=== PATIENT | female | born 1945 | race Caucasian/White ===

== ENCOUNTER → 2016-11-06 | Outpatient (CLI) | payer MEDICARE ==
[2016-11-06 08:35] LABS: ALT 36 U/L (9-52); AST 28 U/L (14-36); Cholesterol 160 mg/dL (<200); HDL Cholesterol 65 mg/dL (40-60); Triglycerides 96 mg/dL (<150)
== END | disposition home or self-care (01) ==
LOC: LABWHC1 07:23
PROVIDERS: ATTEND Internal Medicine Cardiovascular Disease
DX: E78.00 Pure hypercholesterolemia, unspecified (principal)
CPT/HCPCS: 36415; 80061; 84450; 84460

== ENCOUNTER → 2017-04-15 | Outpatient (CLI) | payer MEDICARE ==
--- NOTE | 2017-04-15 11:28 | XR ---
EXAMINATION TYPE: XR cervical spine comp DATE OF EXAM: 04/15/2017 COMPARISON: NONE HISTORY: 71-year-old female with cervicalgia, neck pain for 2 to 3 months TECHNIQUE: 5 views FINDINGS: Uncovertebral joint and facet arthropathy in the mid lumbar spine with corresponding mild disc/endpla te degenerative change, particularly at C5-C6. Anterior endplate spondylosis is present as well as armendariz ggestion of posterior disc osteophyte complex. There is normal alignment of the cervical spine. Odont oid view is normal. No significant bony spondylotic neural foraminal narrowing on either side. IMPRESSION: Mild to moderate spondylotic change mid to lower cervical spine particularly at C5-C6. No significant bony neural foraminal narrowing on either side.
== END | disposition home or self-care (01) ==
LOC: RADXRMAIN 10:46
PROVIDERS: ATTEND Family Medicine
DX: M47.812 Spondylosis without myelopathy or radiculopathy, cervical region (principal)
CPT/HCPCS: 72050

== ENCOUNTER 2017-06-09 09:46 | Day surgery (SDC) | payer MEDICARE ==
[2017-06-06 18:09] VITALS: BMI 33.9
[~2017-06-09 09:46] MED LIST: LACTATED RINGERS 1,000 ML IV SCH; LIDOCAINE 1% 20 ML VIAL (10MG/ML) FOR IV START INTRADERMA PRN
[2017-06-09 10:54] VITALS: TEMP 96.7
[2017-06-09] MEDS ORDERED: PROPOFOL 10 MG/ML 20 ML VIAL IV ONE (10:59)
[2017-06-09 11:33] VITALS: BP 106/59; PULSE 59; RESP 16
--- NOTE | 2017-06-09 11:41 | P.PCN ---
Date of Procedure: 06/09/17 Preoperative Diagnosis: Postoperative Diagnosis: Procedure(s) Performed: Procedure: Total colonoscopy. Preoperative diagnosis: Hemoccult-positive stools. Postoperative diagnosis: Sigmoid diverticulosis with no evidence of acute diverticulitis, strictures, polyps or cancer. Preparation: HalfLytely prep. Sedation: Was provided by anesthesia. Brief clinical history: The patient is a 71-year-old female who is referred for this evaluation for finding of positive occult blood in her stools. She has no abdominal complaints, bleeding or anemia. Her prior colonoscopy was more than 12 years ago. Procedure: With the patient on her left lateral decubitus position and after informed consent and adequate sedation, the perianal area was inspected and it did not show any fissures or fistulas. There were no masses felt on digital rectal examination. The Olympus CFQ 160L video colonoscope was then inserted in the rectum in the usual fashion and advanced to the cecum. There were multiple diverticular orifices seen scattered in the sigmoid but I saw no evidence of acute diverticulitis or strictures. The mucosa appeared healthy. No polyps or tumors were seen. Low-grade internal hemorrhoids were noted upon withdrawing the endoscope with no evidence of bleeding. The patient tolerated the procedure well. Plan: The patient was reassured. Discussed dietary measures. Consideration can be given for an upper GI endoscopy, for further workup of her Hemoccult- positive stools, if she has upper abdominal complaints or anemia. She will follow-up with you as planned and I'll be happy to see in the future if needed. Implants: Indications for Procedure: Operative Findings: Description of Procedure:
== END 2017-06-09 12:22 | disposition home or self-care (01) ==
LOC: ORWHC2ENDO 09:46
DX: K57.30 Diverticulosis of large intestine without perforation or abscess without bleeding (principal); K64.8 Other hemorrhoids; R19.5 Other fecal abnormalities; I25.10 Atherosclerotic heart disease of native coronary artery without angina pectoris; I10 Essential (primary) hypertension; E78.5 Hyperlipidemia, unspecified; E07.9 Disorder of thyroid, unspecified; J45.909 Unspecified asthma, uncomplicated; Z79.51 Long term (current) use of inhaled steroids; Z79.899 Other long term (current) drug therapy; Z88.5 Allergy status to narcotic agent; Z88.2 Allergy status to sulfonamides
CPT/HCPCS: 45378; J2704

== ENCOUNTER → 2018-11-03 | Outpatient (CLI) | payer MEDICARE ==
--- NOTE | 2018-11-03 10:19 | US ---
EXAMINATION TYPE: US venous doppler duplex LE RT DATE OF EXAM: 11/03/2018 10:06 AM COMPARISON: NONE CLINICAL HISTORY: Rt Lower Ext, Pain M25.561 M17.11. Right knee pain SIDE PERFORMED: Right TECHNIQUE: The lower extremity deep venous system is examined utilizing real time linear array sonog vickie with graded compression, doppler sonography and color-flow sonography. VESSELS IMAGED: Common Femoral Vein Deep Femoral Vein Greater Saphenous Vein * Femoral Vein Popliteal Vein Small Saphenous Vein * Proximal Calf Veins (* superficial vessels) Right Leg: Negative for DVT. Thick venous valves(stuck valves)are noted mid Femoral Vein, but color flow patency is documented throughout right leg as assessed. Complex right popliteal fossa cyst is no pilo = 5.1 x 1.7 x 1.3cm. IMPRESSION: 1. No evidence for DVT. 2. Complex right Joy cyst 3. valvular thickening as noted.
== END | disposition home or self-care (01) ==
LOC: RADUSWWP 09:37
PROVIDERS: ATTEND Orthopaedic Surgery
DX: M71.21 Synovial cyst of popliteal space [Baker], right knee (principal); M79.661 Pain in right lower leg; I80.9 Phlebitis and thrombophlebitis of unspecified site; M17.11 Unilateral primary osteoarthritis, right knee

== ENCOUNTER 2019-03-20 16:38 | Emergency (ER) | payer MEDICARE ==
--- NOTE | 2019-03-20 18:49 | CT ---
EXAMINATION TYPE: CT brain keisha wo con DATE OF EXAM: 03/20/2019 COMPARISON: 05/14/2016 HISTORY: fall CT DLP: 1510.5 mGycm Automated exposure control for dose reduction was used. TECHNIQUE: CT scan of the head and cervical spine are performed without contrast. FINDINGS: There is no acute intracranial hemorrhage, mass effect, or midline shift identified. The ventricles and sulci are within normal limits in size. The globes are intact and the visualized sin uses are clear. Cervical spine is visualized in its entirety from C1 through upper thoracic levels and demonstrates s atisfactory alignment without evidence of acute fracture or dislocation. Prevertebral soft tissue ap pears within normal limits. The C1-C2 articulation is unremarkable. IMPRESSION: 1. There is no acute fracture or dislocation evident in the cervical spine. 2. No acute intracranial hemorrhage, mass effect, or midline shift is seen.
--- NOTE | 2019-03-20 18:56 | XR ---
EXAMINATION: XR chest 2V DATE AND TIME: 03/20/2019 6:04 PM CLINICAL INDICATION: PHH; Pain TECHNIQUE: Departmental protocol COMPARISON: None FINDINGS: The lungs are clear. The pleural spaces are negative. The cardiac silhouette is mildly enlarged. The remainder of the mediastinal silhouette is unremarkabl e. The skeletal structures and soft tissues are negative for acute findings. IMPRESSION: NO ACUTE PROCESS.
--- NOTE | 2019-03-20 19:08 | ED ---
Fall HPI - General Chief Complaint: Fall Stated Complaint: fall, shoulder/head injury Time Seen by Provider: 03/20/19 16:57 Source: patient, old records reviewed, Caregiver Mode of arrival: wheelchair - History of Present Illness Initial Comments: This is a 73-year-old female the ER for evaluation. She presents today status post fall follows mechanical mechanical trip and fall with no blood thinners complaining of headache and neck pain right shoulder right arm right knee and right ankle pain. No loss of consciousness. No chest pain or shortness of breath no abdominal pain. 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 Fall Witnessed: no Place Fall Occurred: home Loss of Consciousness: none Symptoms Prior to Fall: none Location: head, neck, chest Location - Extremities: Right: Shoulder, Arm, Elbow, Forearm, Knee, Leg, Ankle, Foot Severity: moderate Severity scale (1-10): 3 Quality: burning Context: tripped/slipped Associated Symptoms: denies - Related Data Home Medications Medication Instructions Recorded Confirmed Albuterol Sulfate [Proair Hfa] 2 puff INHALATION RT-Q6H PRN 05/13/15 03/20/19 Atenolol [Tenormin] 50 mg PO BID 05/13/15 03/20/19 Levocetirizine Dihydrochloride 5 mg PO DAILY PRN 05/13/15 03/20/19 [Xyzal] Levothyroxine Sodium [Synthroid] 112 mcg PO HS 05/13/15 03/20/19 Montelukast [Singulair] 10 mg PO HS 05/13/15 03/20/19 Vits A,C,E/Lutein/Minerals 1 tab PO DAILY 05/13/15 03/20/19 [Ocuvite with Lutein Tablet] Aspirin EC [Ecotrin] 81 mg PO DAILY 06/06/17 03/20/19 Beclomethasone Dip 80 Mcg/Puff 1 puff INHALATION BID 06/06/17 03/20/19 [Qvar 80 mcg] Triamcinolone 0.025% Cream 1 applic TOPICAL BID PRN 06/06/17 03/20/19 [Kenalog 0.025% Cream] Atorvastatin [Lipitor] 40 mg PO HS 03/20/19 03/20/19 Cholecalciferol (Vitamin D3) 2,000 unit PO DAILY 03/20/19 03/20/19 [Vitamin D3] Furosemide [Lasix] 20 mg PO HS 03/20/19 03/20/19 Hyoscyamine Sulfate [Levsin] 0.125 mg PO BID 03/20/19 03/20/19 Krill/Om-3/Dha/Epa/Phospho/Ast 1 cap PO DAILY 03/20/19 03/20/19 [Evans-3 Krill Oil 300 mg Sfgl] Previous Rx's Medication Instructions Recorded Isosorbide Mononitrate ER [Imdur] 30 mg PO DAILY #30 tab.er.24h 05/15/15 Allergies Allergy/AdvReac Type Severity Reaction Status Date / Time codeine Allergy Unknown Verified 03/20/19 17:27 Sulfa (Sulfonamide Allergy Itching Verified 03/20/19 17:27 Antibiotics) Review of Systems ROS Statement: Those systems with pertinent positive or pertinent negative responses have been documented in the HPI. ROS Other: All systems not noted in ROS Statement are negative. Past Medical History Past Medical History: Asthma, Coronary Artery Disease (CAD), Eye Disorder, Hyperlipidemia, Hypertension, Osteoarthritis (OA), Skin Disorder, Thyroid Disorder Additional Past Medical History / Comment(s): MACULAR DEGENERATION. ULCER (STOMACH). SHINGLES 2010. HASHIMOTOS. LICHEN SCLEROSUS ON VULVA, LICHEN PLANUS. HAD POS HOME TEST FOR BLOOD IN STOOL. OA IN NECK. History of Any Multi-Drug Resistant Organisms: None Reported Past Surgical History: Breast Surgery, Cholecystectomy, Heart Catheterization, Tonsillectomy Additional Past Surgical History / Comment(s): BREAST BX NEG. BREAST REDUCTION SX, colonoscopy about 5 years ago, UTERINE fibroid tumor removed. Past Anesthesia/Blood Transfusion Reactions: Motion Sickness Past Psychological History: No Psychological Hx Reported Smoking Status: Former smoker Past Alcohol Use History: Occasional Past Drug Use History: None Reported - Past Family History Father Family Medical History: Renal Disease Additional Family Medical History / Comment(s): NEPHRECTOMY, HEART PROBLEMS. Mother Family Medical History: Coronary Artery Disease (CAD), Dementia, Hypertension, Osteoarthritis (OA) Brother(s) Family Medical History: No Reported History Sister(s) Family Medical History: No Reported History Daughter(s) Family Medical History: No Reported History General Exam - General Exam Comments Initial Comments: Right has right shoulder right elbow right knee and right ankle pain Limitations: no limitations General appearance: alert, in no apparent distress Head exam: Present: atraumatic, normocephalic, normal inspection Eye exam: Present: normal appearance, PERRL, EOMI. Absent: scleral icterus, conjunctival injection, periorbital swelling ENT exam: Present: normal exam, mucous membranes moist Neck exam: Present: normal inspection. Absent: tenderness, meningismus, lymphadenopathy Respiratory exam: Present: normal lung sounds bilaterally. Absent: respiratory distress, wheezes, rales, rhonchi, stridor Cardiovascular Exam: Present: regular rate, normal rhythm, normal heart sounds. Absent: systolic murmur, diastolic murmur, rubs, gallop, clicks GI/Abdominal exam: Present: soft, normal bowel sounds. Absent: distended, tenderness, guarding, rebound, rigid Extremities exam: Present: normal inspection, full ROM, normal capillary refill. Absent: tenderness, pedal edema, joint swelling, calf tenderness Back exam: Present: normal inspection Neurological exam: Present: alert, oriented X3, CN II-XII intact Psychiatric exam: Present: normal affect, normal mood Skin exam: Present: warm, dry, intact, normal color. Absent: rash Course Vital Signs 03/20/19 16:47 Temperature 98.1 F Pulse Rate 86 Respiratory 18 Rate Blood Pressure 131/73 O2 Sat by Pulse 99 Oximetry - Reevaluation(s) Reevaluation #1: 03/20/19 19:11 Medical record is reviewed Reevaluation #2: 03/20/19 19:11 Patient's in no acute distress Medical Decision Making - Medical Decision Making 73 female the ER for evaluation patient is ER for status post mechanical trip and fall traumatic injury found the patient can be discharged home - Radiology Data Radiology results: report reviewed (CT brain C-spine, x-ray chest shoulder pelvis right knee and right ankle is negative for traumatic injury), image reviewed Disposition Clinical Impression: Fall Disposition: HOME SELF-CARE Condition: Good Instructions (If sedation given, give patient instructions): Fall Prevention for Older Adults (ED) Is patient prescribed a controlled substance at d/c from ED?: No Referrals: Ramsey Matute DO [Primary Care Provider] - 1-2 days
--- NOTE | 2019-03-20 19:15 | XR ---
PROCEDURE: XR shoulder complete RT - 3V DATE AND TIME: 03/20/2019 6:04 PM CLINICAL INDICATION: PHH; Pain TECHNIQUE: Department protocol COMPARISON: None FINDINGS: There is no fracture or malalignment. The soft tissues are unremarkable. IMPRESSION: NO ACUTE PROCESS.
--- NOTE | 2019-03-20 19:16 | XR ---
PROCEDURE: XR elbow complete RT - 3V DATE AND TIME: 03/20/2019 6:04 PM CLINICAL INDICATION: PHH; Pain TECHNIQUE: Department protocol COMPARISON: None FINDINGS: There is no fracture or malalignment. The soft tissues are unremarkable. IMPRESSION: NO ACUTE PROCESS.
--- NOTE | 2019-03-20 19:17 | XR ---
PROCEDURE: XR knee complete RT - 3V DATE AND TIME: 03/20/2019 6:04 PM CLINICAL INDICATION: PHH; Pain TECHNIQUE: Department protocol COMPARISON: None FINDINGS: There is no fracture or malalignment. Advanced medial compartment osteoarthritis changes ar e noted. The soft tissues are unremarkable. IMPRESSION: NO ACUTE PROCESS.
--- NOTE | 2019-03-20 19:17 | XR ---
PROCEDURE: XR ankle complete RT - 3V DATE AND TIME: 03/20/2019 6:04 PM CLINICAL INDICATION: PHH; Pain TECHNIQUE: Department protocol COMPARISON: None FINDINGS: There is no fracture or malalignment. Multifocal osteoarthritis changes noted. Pes planus a lso noted. The soft tissues are unremarkable. IMPRESSION: NO ACUTE PROCESS.
[2019-03-20 20:30] VITALS: BP 107/69; PULSE 61; RESP 20; TEMP 97.8
== END 2019-03-20 20:31 | disposition home or self-care (01) ==
LOC: EC 16:38
DX: M25.511 Pain in right shoulder (principal); M25.521 Pain in right elbow; M25.561 Pain in right knee; M25.571 Pain in right ankle and joints of right foot; M54.2 Cervicalgia; J45.909 Unspecified asthma, uncomplicated; I25.10 Atherosclerotic heart disease of native coronary artery without angina pectoris; E78.5 Hyperlipidemia, unspecified; I10 Essential (primary) hypertension; M19.90 Unspecified osteoarthritis, unspecified site; E06.3 Autoimmune thyroiditis; H35.30 Unspecified macular degeneration; Z87.891 Personal history of nicotine dependence; Z79.82 Long term (current) use of aspirin; Z79.51 Long term (current) use of inhaled steroids; Z79.890 Hormone replacement therapy; Z79.899 Other long term (current) drug therapy; Z88.2 Allergy status to sulfonamides; Z88.5 Allergy status to narcotic agent; Z95.818 Presence of other cardiac implants and grafts; W01.0XXA Fall on same level from slipping, tripping and stumbling without subsequent striking against object, initial encounter
CPT/HCPCS: 70450; 71046; 72125; 99284

== ENCOUNTER → 2019-06-22 | Outpatient (CLI) | payer MEDICARE ==
[2019-06-22 17:06] LABS: Chol/HDL Ratio 2.56; LDL Cholesterol,Calculated 69.8 mg/dL (0.0-131.0); VLDL Calculation 19.2 mg/dL (5.00-40.00)
== END | disposition home or self-care (01) ==
LOC: LABWHC1 07:33
PROVIDERS: ATTEND Internal Medicine Cardiovascular Disease
DX: E78.2 Mixed hyperlipidemia (principal)
CPT/HCPCS: 36415; 80061; 84450; 84460

== ENCOUNTER → 2019-07-12 | Outpatient (CLI) | payer MEDICARE ==
--- NOTE | 2019-07-13 04:19 | XR ---
EXAMINATION TYPE: XR mandible complete DATE OF EXAM: 07/12/2019 COMPARISON: NONE HISTORY: 73-year-old female right-sided mandible pain TECHNIQUE: 5 views FINDINGS: Slight leftward nasal septal deviation. Questionable slight anterior subluxation of the bilateral TMJ s no acute mandibular fracture is seen. IMPRESSION: Questionable slight anterior subluxation at the bilateral TMJs could reflect underlying degenerative change. No acute mandibular fracture identified. If persistent concern, facial bone/mandibular CT can be considered.
== END | disposition home or self-care (01) ==
LOC: RADXRMAIN 10:57
PROVIDERS: ATTEND Family Medicine
DX: M26.601 Right temporomandibular joint disorder, unspecified (principal)
CPT/HCPCS: 70110

== ENCOUNTER 2019-11-27 07:05 | Emergency (ER) | payer MEDICARE ==
[2019-11-27 07:41] VITALS: TEMP 97.8
[2019-11-27] MEDS ORDERED: SODIUM CHLORIDE 0.9% 500 ML 500 ML IV STA (07:49)
[2019-11-27 08:04] LABS: Basophils % (A) 1 %; Eosinophils # (A) 0.1 k/uL (0-0.7); Eosinophils % (A) 3 %; HCT 43.5 % (34.0-46.0); HGB 14.2 gm/dL (11.4-16.0); Lymphocytes # (A) 1.4 k/uL (1.0-4.8); Lymphocytes % (A) 32 %; MCH 28.6 pg (25.0-35.0); MCHC 32.7 g/dL (31.0-37.0); MCV 87.7 fL (80.0-100.0); Monocytes # (A) 0.2 k/uL (0-1.0); Monocytes % (A) 5 %; Neutrophils # (A) 2.6 k/uL (1.3-7.7); Neutrophils % (A) 58 %; Platelet Count 153 k/uL (150-450); RBC 4.96 m/uL (3.80-5.40); RDW 13.3 % (11.5-15.5); WBC 4.4 k/uL (3.8-10.6)
[2019-11-27 08:14] LABS: Partial Thromboplastin Time 22.1 sec (22.0-30.0); Prothrombin Time 10.1 sec (9.0-12.0)
[2019-11-27 08:21] LABS: ALT 11 U/L (4-34); AST 28 U/L (14-36); African American GFR (CKD) >90 (>60 ml/min/1.73 sqM); Albumin 3.5 g/dL (3.5-5.0); Alkaline Phosphatase 65 U/L (38-126); Anion Gap 5 mmol/L; Blood Urea Nitrogen 17 mg/dL (7-17); Calcium 8.5 mg/dL (8.4-10.2); Carbon Dioxide 26 mmol/L (22-30); Chloride 106 mmol/L (98-107); Glucose 117 mg/dL (74-99); Magnesium 1.8 mg/dL (1.6-2.3); Non-African American GFR(CKD) 82 (>60 ml/min/1.73 sqM); Potassium 4.3 mmol/L (3.5-5.1); Sodium 137 mmol/L (137-145); Total Bilirubin 0.6 mg/dL (0.2-1.3); Total Protein 6.1 g/dL (6.3-8.2)
--- NOTE | 2019-11-27 08:36 | XR ---
EXAMINATION TYPE: XR chest 2V DATE OF EXAM: 11/27/2019 COMPARISON: Prior chest x-ray dated 03/20/2019 HISTORY: Dysrhythmia TECHNIQUE: Frontal and lateral views of the chest are obtained. FINDINGS: Patient is rotated. There is no focal air space opacity, pleural effusion, or pneumothorax seen. The cardiac silhouette size is stable, borderline enlarged. There are overlying cardiac leads . The osseous structures are intact, there is thoracic spondylosis. IMPRESSION: No acute cardiopulmonary process. Borderline cardiomegaly is stable.
--- NOTE | 2019-11-27 08:49 | ED ---
General Adult HPI - General Chief complaint: Chest Pain Stated complaint: Cardiac Time Seen by Provider: 11/27/19 07:45 Source: patient Mode of arrival: EMS Limitations: no limitations - History of Present Illness Initial comments: The patient is a 73-year-old female past medical history of hypertension and hyperlipidemia presents emergency room with reported palpitations. She states that she awoke around 4 AM this morning. She felt very weak with palpitations in her chest. She was also mildly short of breath. She tended to go back to sleep. Woke around 6 AM and still had similar symptoms therefore she called an ambulance. She denies history of cardiac arrhythmia. No current chest pain. Does see Dr. Barahona in office. Denies any lateralizing symptoms. No fevers or chills. Denies ripping or tearing sensation to her back. Denies abdominal pain or changes in her bowel or bladder habits. Denies any headaches or visual changes. States that her symptoms have completely resolved now that she is in the emergency room. There are no other alleviating, precipitating or modifying factors - Related Data Home Medications Medication Instructions Recorded Confirmed Albuterol Sulfate [Proair Hfa] 2 puff INHALATION RT-Q6H PRN 05/13/15 11/27/19 Atenolol [Tenormin] 50 mg PO BID 05/13/15 11/27/19 Levocetirizine Dihydrochloride 5 mg PO DAILY PRN 05/13/15 11/27/19 [Xyzal] Levothyroxine Sodium [Synthroid] 112 mcg PO DAILY 05/13/15 11/27/19 Montelukast [Singulair] 10 mg PO HS 05/13/15 11/27/19 Vits A,C,E/Lutein/Minerals 1 tab PO DAILY 05/13/15 11/27/19 [Ocuvite with Lutein Tablet] Beclomethasone Dip 80 Mcg/Puff 1 puff INHALATION RT-BID 06/06/17 11/27/19 [Qvar 80 mcg] Atorvastatin [Lipitor] 40 mg PO HS 03/20/19 11/27/19 Cholecalciferol (Vitamin D3) 2,000 unit PO DAILY 03/20/19 11/27/19 [Vitamin D3] Krill/Om-3/Dha/Epa/Phospho/Ast 1 cap PO DAILY 03/20/19 11/27/19 [[place]-3 Krill Oil 300 mg Sfgl] Aspirin EC [Ecotrin Low Dose] 81 mg PO DAILY 11/27/19 11/27/19 Ergocalciferol [Vitamin D2] 50,000 unit PO WE 11/27/19 11/27/19 Solifenacin Succinate [Vesicare] 5 mg PO DAILY 11/27/19 11/27/19 Previous Rx's Medication Instructions Recorded Isosorbide Mononitrate ER [Imdur] 30 mg PO DAILY #30 tab.er.24h 05/15/15 Allergies Allergy/AdvReac Type Severity Reaction Status Date / Time codeine Allergy Unknown Verified 11/27/19 09:07 Sulfa (Sulfonamide Allergy Itching Verified 11/27/19 09:07 Antibiotics) Review of Systems ROS Statement: Those systems with pertinent positive or pertinent negative responses have been documented in the HPI. ROS Other: All systems not noted in ROS Statement are negative. Past Medical History Past Medical History: Asthma, Coronary Artery Disease (CAD), Eye Disorder, Hyperlipidemia, Hypertension, Osteoarthritis (OA), Skin Disorder, Thyroid Di sorder Additional Past Medical History / Comment(s): MACULAR DEGENERATION. ULCER (STOMACH). SHINGLES 2010. HASHIMOTOS. LICHEN SCLEROSUS ON VULVA, LICHEN PLANUS. HAD POS HOME TEST FOR BLOOD IN STOOL. OA IN NECK. History of Any Multi-Drug Resistant Organisms: None Reported Past Surgical History: Breast Surgery, Cholecystectomy, Heart Catheterization, Tonsillectomy Additional Past Surgical History / Comment(s): BREAST BX NEG. BREAST REDUCTION SX, colonoscopy about 5 years ago, UTERINE fibroid tumor removed. Past Anesthesia/Blood Transfusion Reactions: Motion Sickness Past Psychological History: No Psychological Hx Reported Smoking Status: Former smoker Past Alcohol Use History: Occasional Past Drug Use History: None Reported - Past Family History Father Family Medical History: Renal Disease Additional Family Medical History / Comment(s): NEPHRECTOMY, HEART PROBLEMS. Mother Family Medical History: Coronary Artery Disease (CAD), Dementia, Hypertension, Osteoarthritis (OA) Brother(s) Family Medical History: No Reported History Sister(s) Family Medical History: No Reported History Daughter(s) Family Medical History: No Reported History General Exam Limitations: no limitations General appearance: alert, in no apparent distress Head exam: Present: atraumatic, normocephalic, normal inspection Eye exam: Present: normal appearance, PERRL, EOMI. Absent: scleral icterus, conjunctival injection, periorbital swelling ENT exam: Present: normal exam, mucous membranes moist Neck exam: Present: normal inspection. Absent: tenderness, meningismus, lymphadenopathy Respiratory exam: Present: normal lung sounds bilaterally. Absent: respiratory distress, wheezes, rales, rhonchi, stridor Cardiovascular Exam: Present: normal rhythm, bradycardia, normal heart sounds. Absent: systolic murmur, diastolic murmur, rubs, gallop, clicks GI/Abdominal exam: Present: soft, normal bowel sounds. Absent: distended, tenderness, guarding, rebound, rigid Extremities exam: Present: normal inspection, full ROM, normal capillary refill. Absent: tenderness, pedal edema, joint swelling, calf tenderness Back exam: Present: normal inspection Neurological exam: Present: alert, oriented X3, CN II-XII intact Psychiatric exam: Present: normal affect, normal mood Skin exam: Present: warm, dry, intact, normal color. Absent: rash Course Vital Signs 11/27/19 11/27/19 11/27/19 07:40 08:00 08:30 Temperature 97.8 F Pulse Rate 56 L 55 L 54 L Pulse Rate [ Sitting] Pulse Rate [ Standing] Pulse Rate [ Supine] Respiratory 18 16 15 Rate Blood Pressure 135/61 116/78 124/67 Blood Pressure [Sitting] Blood Pressure [Standing] Blood Pressure [Supine] O2 Sat by Pulse 92 L 92 L 94 L Oximetry 11/27/19 11/27/19 11/27/19 09:00 09:30 10:11 Temperature Pulse Rate 61 51 L Pulse Rate [ 52 L Sitting] Pulse Rate [ 54 L Standing] Pulse Rate [ 51 L Supine] Respiratory 13 16 Rate Blood Pressure 114/61 120/69 Blood Pressure 124/68 [Sitting] Blood Pressure 120/67 [Standing] Blood Pressure 115/59 [Supine] O2 Sat by Pulse 95 94 L Oximetry EKG Findings - EKG Comments: EKG Findings:: EKG demonstrates sinus bradycardia with a ventricular rate of 56. AL interval 16. QRS 112. QTC of 461. No acute ST segment elevations or depressions. There is an incomplete right bundle-branch block. Medical Decision Making - Medical Decision Making Upon arrival the patient was placed into room 11. A thorough history and physical exam was performed. 12-lead EKG was performed. Laboratory studies were conducted. CBC, CMP and coagulation studies are normal. Troponin is negative. UA is negative. Orthostatics were performed and are negative. I did perform a chest x-ray which demonstrates no acute cardiopulmonary process. I discussed results with the patient. She has had no reoccurrence of her symptoms at this time. She feels comfortable going home. I did inform her that she may benefit from a echo of her heart. The patient understood this. She needs to call her primary care doctor and follow-up within 2-4 days. Return to the emergency room for any new or worsening symptoms. Patient agreed to this was discharged home in stable condition - Lab Data Result diagrams: 11/27/19 07:34 11/27/19 07:34 Lab Results 11/27/19 11/27/19 11/27/19 Range/Units 07:34 07:34 07:34 WBC 4.4 (3.8-10.6) k/uL RBC 4.96 (3.80-5.40) m/uL Hgb 14.2 (11.4-16.0) gm/dL Hct 43.5 (34.0-46.0) % MCV 87.7 (80.0-100.0) fL MCH 28.6 (25.0-35.0) pg MCHC 32.7 (31.0-37.0) g/dL RDW 13.3 (11.5-15.5) % Plt Count 153 (150-450) k/uL Neutrophils % 58 % Lymphocytes % 32 % Monocytes % 5 % Eosinophils % 3 % Basophils % 1 % Neutrophils # 2.6 (1.3-7.7) k/uL Lymphocytes # 1.4 (1.0-4.8) k/uL Monocytes # 0.2 (0-1.0) k/uL Eosinophils # 0.1 (0-0.7) k/uL Basophils # 0.0 (0-0.2) k/uL PT 10.1 (9.0-12.0) sec INR 1.0 (<1.2) APTT 22.1 (22.0-30.0) sec Sodium 137 (137-145) mmol/L Potassium 4.3 (3.5-5.1) mmol/L Chloride 106 (98-107) mmol/L Carbon Dioxide 26 (22-30) mmol/L Anion Gap 5 mmol/L BUN 17 (7-17) mg/dL Creatinine 0.73 (0.52-1.04) mg/dL Est GFR (CKD-EPI)AfAm >90 (>60 ml/min/1.73 sqM) Est GFR (CKD-EPI)NonAf 82 (>60 ml/min/1.73 sqM) Glucose 117 H (74-99) mg/dL Calcium 8.5 (8.4-10.2) mg/dL Magnesium 1.8 (1.6-2.3) mg/dL Total Bilirubin 0.6 (0.2-1.3) mg/dL AST 28 (14-36) U/L ALT 11 (4-34) U/L Alkaline Phosphatase 65 (38-126) U/L Troponin I (0.000-0.034) ng/mL Total Protein 6.1 L (6.3-8.2) g/dL Albumin 3.5 (3.5-5.0) g/dL TSH 0.762 (0.465-4.680) mIU/L Urine Color Urine Appearance (Clear) Urine pH (5.0-8.0) Ur Specific [place] (1.001-1.035) Urine Protein (Negative) Urine Glucose (UA) (Negative) Urine Ketones (Negative) Urine Blood (Negative) Urine Nitrite (Negative) Urine Bilirubin (Negative) Urine Urobilinogen (<2.0) mg/dL Ur Leukocyte Esterase (Negative) Urine RBC (0-5) /hpf Urine WBC (0-5) /hpf Ur Squamous Epith Cells (0-4) /hpf Urine Mucus (None) /hpf 11/27/19 11/27/19 Range/Units 07:34 09:14 WBC (3.8-10.6) k/uL RBC (3.80-5.40) m/uL Hgb (11.4-16.0) gm/dL Hct (34.0-46.0) % MCV (80.0-100.0) fL MCH (25.0-35.0) pg MCHC (31.0-37.0) g/dL RDW (11.5-15.5) % Plt Count (150-450) k/uL Neutrophils % % Lymphocytes % % Monocytes % % Eosinophils % % Basophils % % Neutrophils # (1.3-7.7) k/uL Lymphocytes # (1.0-4.8) k/uL Monocytes # (0-1.0) k/uL Eosinophils # (0-0.7) k/uL Basophils # (0-0.2) k/uL PT (9.0-12.0) sec INR (<1.2) APTT (22.0-30.0) sec Sodium (137-145) mmol/L Potassium (3.5-5.1) mmol/L Chloride (98-107) mmol/L Carbon Dioxide (22-30) mmol/L Anion Gap mmol/L BUN (7-17) mg/dL Creatinine (0.52-1.04) mg/dL Est GFR (CKD-EPI)AfAm (>60 ml/min/1.73 sqM) Est GFR (CKD-EPI)NonAf (>60 ml/min/1.73 sqM) Glucose (74-99) mg/dL Calcium (8.4-10.2) mg/dL Magnesium (1.6-2.3) mg/dL Total Bilirubin (0.2-1.3) mg/dL AST (14-36) U/L ALT (4-34) U/L Alkaline Phosphatase (38-126) U/L Troponin I <0.012 (0.000-0.034) ng/mL Total Protein (6.3-8.2) g/dL Albumin (3.5-5.0) g/dL TSH (0.465-4.680) mIU/L Urine Color Yellow Urine Appearance Clear (Clear) Urine pH 5.0 (5.0-8.0) Ur Specific [place] 1.010 (1.001-1.035) Urine Protein Negative (Negative) Urine Glucose (UA) Negative (Negative) Urine Ketones Negative (Negative) Urine Blood Negative (Negative) Urine Nitrite Negative (Negative) Urine Bilirubin Negative (Negative) Urine Urobilinogen <2.0 (<2.0) mg/dL Ur Leukocyte Esterase Moderate (Negative) Urine RBC 2 (0-5) /hpf Urine WBC 1 (0-5) /hpf Ur Squamous Epith Cells 3 (0-4) /hpf Urine Mucus Rare H (None) /hpf Disposition Clinical Impression: Palpitations Disposition: HOME SELF-CARE Condition: Stable Instructions (If sedation given, give patient instructions): Heart Palpitations (ED) Additional Instructions: Please follow-up with your primary care doctor in 2-4 days. Return to the emergency room for any worsening symptoms. You may benefit by having a echo of your heart Is patient prescribed a controlled substance at d/c from ED?: No Referrals: Ramsey Matute DO [Primary Care Provider] - 1-2 days Rajesh Barahona MD [STAFF PHYSICIAN] - 1-2 days Time of Disposition: 10:28
[2019-11-27 09:42] LABS: Mucus,Urine Rare /hpf; RBC,Urine 2 /hpf (0-5); Squamous Epithelial Cell,Urine 3 /hpf (0-4); WBC,Urine 1 /hpf (0-5)
[2019-11-27 09:44] LABS: Appearance,Urine Clear (Clear); Bilirubin,Urine Negative (Negative); Blood,Urine Negative (Negative); Color,Urine Yellow; Glucose,Urine (UA) Negative (Negative); Ketones,Urine Negative (Negative); Nitrite,Urine Negative (Negative); Protein,Urine Negative (Negative); Urobilinogen,Urine <2.0 mg/dL (<2.0)
[2019-11-27 09:45] LABS: Leukocyte Esterase,Urine Moderate (Negative)
[2019-11-27 09:57] VITALS: PULSE 51; RESP 16
[2019-11-27 10:17] VITALS: BP 115/59
== END 2019-11-27 10:48 | disposition home or self-care (01) ==
LOC: EC 07:05
DX: R00.2 Palpitations (principal); R00.1 Bradycardia, unspecified; R53.1 Weakness; R06.02 Shortness of breath; J45.909 Unspecified asthma, uncomplicated; I25.10 Atherosclerotic heart disease of native coronary artery without angina pectoris; E78.5 Hyperlipidemia, unspecified; I10 Essential (primary) hypertension; M47.812 Spondylosis without myelopathy or radiculopathy, cervical region; E06.3 Autoimmune thyroiditis; Z87.891 Personal history of nicotine dependence; Z88.2 Allergy status to sulfonamides; Z88.5 Allergy status to narcotic agent; Z79.51 Long term (current) use of inhaled steroids; Z79.82 Long term (current) use of aspirin; Z79.890 Hormone replacement therapy; Z79.899 Other long term (current) drug therapy; Z95.818 Presence of other cardiac implants and grafts; Z82.49 Family history of ischemic heart disease and other diseases of the circulatory system
CPT/HCPCS: 36415; 71046; 80053; 81001; 83735; 84443; 84484; 85025; 85610; 85730; 93005; 96360; 99285

== ENCOUNTER → 2021-06-27 | Outpatient (CLI) | payer MEDICARE ==
[2021-06-27 20:07] LABS: Chol/HDL Ratio 3.3; LDL Cholesterol,Calculated 77.8 mg/dL (0.0-131.0); VLDL Calculation 28.2 mg/dL (5.00-40.00)
== END | disposition home or self-care (01) ==
LOC: LABWHC1 08:06
PROVIDERS: ATTEND Internal Medicine Cardiovascular Disease
DX: E78.2 Mixed hyperlipidemia (principal)
CPT/HCPCS: 36415; 80061; 84450; 84460

== ENCOUNTER 2021-12-21 07:34 | Emergency (ER) | payer MEDICARE ==
[2021-12-21 07:42] VITALS: RESP 18
[2021-12-21] MEDS ORDERED: ACETAMINOPHEN TAB 325 MG TAB PO STA (08:10)
--- NOTE | 2021-12-21 08:15 | ED ---
Fall HPI - General Chief Complaint: Fall Stated Complaint: fall Time Seen by Provider: 12/21/21 07:45 Source: patient, RN notes reviewed Mode of arrival: wheelchair Limitations: no limitations - History of Present Illness Initial Comments: This a 76-year-old female presented emergency Department chief complaint of fall. Patient states she was taking out the trash, slipped on some ice striking her head. Patient states she has a large area of swelling no laceration. She states that she does feel slightly nauseated no blurred vision no focal weakness . Complaint of upper back pain when she hit. She states it just feels more like muscle. Denies any hip pain denies any difficulty ambulate no focal weakness patient offers no complaints. - Related Data Home Medications Medication Instructions Recorded Confirmed Albuterol Sulfate [Proair Hfa] 2 puff INHALATION RT-QID PRN 05/13/15 12/21/21 Levocetirizine Dihydrochloride 5 mg PO DAILY PRN 05/13/15 12/21/21 [Xyzal] Levothyroxine Sodium [Synthroid] 112 mcg PO PC-SUPPER 05/13/15 12/21/21 Montelukast [Singulair] 10 mg PO DAILY@1600 05/13/15 12/21/21 atenoloL [Tenormin] 50 mg PO BID 05/13/15 12/21/21 Atorvastatin [Lipitor] 40 mg PO HS 03/20/19 12/21/21 Krill/Om-3/Dha/Epa/Phospho/Ast 1 cap PO DAILY 03/20/19 12/21/21 [[place]-3 Krill Oil 300 mg Sfgl] Aspirin EC [Ecotrin Low Dose] 81 mg PO DAILY 11/27/19 12/21/21 Ergocalciferol [Vitamin D2 (1250 1,250 mcg PO WE 12/21/21 12/21/21 Mcg = 50822 Iu)] Fluticasone Propionate [Flovent 1 puff INHALATION RT-BID 12/21/21 12/21/21 Diskus] Naproxen Sodium [Aleve] 220 mg PO BID PRN 12/21/21 12/21/21 Previous Rx's Medication Instructions Recorded Isosorbide Mononitrate ER [Imdur] 30 mg PO DAILY #30 tab.er.24h 05/15/15 Allergies Allergy/AdvReac Type Severity Reaction Status Date / Time codeine Allergy Unknown Verified 12/21/21 08:58 morphine Allergy Swelling Verified 12/21/21 08:58 @Injection Site Sulfa (Sulfonamide Allergy Itching Verified 12/21/21 08:58 Antibiotics) Review of Systems ROS Statement: Those systems with pertinent positive or pertinent negative responses have been documented in the HPI. ROS Other: All systems not noted in ROS Statement are negative. Past Medical History Past Medical History: Asthma, Coronary Artery Disease (CAD), Eye Disorder, Hyperlipidemia, Hypertension, Osteoarthritis (OA), Skin Disorder, Thyroid Disorder Additional Past Medical History / Comment(s): MACULAR DEGENERATION. ULCER (STOMACH). SHINGLES 2010. HASHIMOTOS. LICHEN SCLEROSUS ON VULVA, LICHEN PLANUS. HAD POS HOME TEST FOR BLOOD IN STOOL. OA IN NECK. History of Any Multi-Drug Resistant Organisms: None Reported Past Surgical History: Breast Surgery, Cholecystectomy, Heart Catheterization, Tonsillectomy Additional Past Surgical History / Comment(s): BREAST BX NEG. BREAST REDUCTION SX, colonoscopy about 5 years ago, UTERINE fibroid tumor removed. Past Anesthesia/Blood Transfusion Reactions: Motion Sickness Past Psychological History: No Psychological Hx Reported Smoking Status: Never smoker Past Alcohol Use History: Occasional Past Drug Use History: None Reported - Past Family History Father Family Medical History: Renal Disease Additional Family Medical History / Comment(s): NEPHRECTOMY, HEART PROBLEMS. Mother Family Medical History: Coronary Artery Disease (CAD), Dementia, Hypertension, Osteoarthritis (OA) Brother(s) Family Medical History: No Reported History Sister(s) Family Medical History: No Reported History Daughter(s) Family Medical History: No Reported History General Exam Limitations: no limitations General appearance: alert, in no apparent distress Head exam: Present: atraumatic, normocephalic. Absent: normal inspection (Large occipital hematoma noted) Eye exam: Present: normal appearance, PERRL, EOMI. Absent: scleral icterus, conjunctival injection, periorbital swelling ENT exam: Present: normal exam, normal oropharynx, mucous membranes moist Neck exam: Present: normal inspection, tenderness (Paracervical tenderness), full ROM. Absent: meningismus, lymphadenopathy Respiratory exam: Present: normal lung sounds bilaterally. Absent: respiratory distress, wheezes, rales, rhonchi, stridor Cardiovascular Exam: Present: regular rate, normal rhythm, normal heart sounds. Absent: systolic murmur, diastolic murmur, rubs, gallop, clicks Back exam: Present: full ROM, tenderness (Thoracic), paraspinal tenderness. Absent: CVA tenderness (R), CVA tenderness (L), vertebral tenderness Neurological exam: Present: alert, oriented X3, CN II-XII intact, reflexes normal. Absent: motor sensory deficit Skin exam: Present: warm, dry, intact, normal color. Absent: rash Course Vital Signs 12/21/21 07:36 Temperature 97.9 F Pulse Rate 95 Respiratory 18 Rate Blood Pressure 162/86 O2 Sat by Pulse 95 Oximetry Medical Decision Making - Medical Decision Making CT of the brain, C-spine, x-ray thoracic spines unremarkable patient we discharged stable condition return parameters were discussed. Patient is neurologically intact. Disposition Clinical Impression: Fall, Scalp hematoma, Back pain Disposition: HOME SELF-CARE Condition: Stable Instructions (If sedation given, give patient instructions): Head Injury (ED) Additional Instructions: Please return to the Emergency Department if symptoms worsen or any other concerns. Is patient prescribed a controlled substance at d/c from ED?: No Referrals: Ramsey Matute DO [Primary Care Provider] - 1-2 days Time of Disposition: 10:01
--- NOTE | 2021-12-21 09:10 | CT ---
EXAMINATION TYPE: CT brain keisha gagnon con DATE OF EXAM: 12/21/2021 COMPARISON: none HISTORY: Fall this am CT DLP: 1217.[address] of the brain was performed. The ventricles, basal cisterns and sulci overlying the cerebral convexities demonstrate mild enlargem ent. There is no evidence for intracranial hemorrhage or sulcal effacement. There is decreased attenuatio n about the periventricular white matter and deep white matter of both cerebral hemispheres, compatib le with chronic small vessel ischemia. No mass effects are seen. If symptoms persist consider MRI. Osseous calvarium is intact. Right posterior parietal occipital scalp hematoma. IMPRESSION: 1. Age related atrophic and chronic small vessel ischemic change without acute intracranial process seen at this time. CT Cervical Spine: Unenhanced CT of the cervical spine was performed with bone and soft tissue window settings submitted . Coronal and sagittal reconstruction is obtained. There is normal alignment and prevertebral soft tissues. No evidence for acute cervical fracture . Scattered degenerative disc disease and spondylosis. Biapical scarring. IMPRESSION: 1. No evidence for acute fracture or subluxation of the cervical spine.
--- NOTE | 2021-12-21 09:25 | XR ---
EXAMINATION TYPE: XR thoracic spine 2V DATE OF EXAM: 12/21/2021 COMPARISON: NONE HISTORY: 76-year-old female pain after slip and fall today TECHNIQUE: 3 views FINDINGS: 12 rib-bearing thoracic vertebral bodies. All pedicles are visualized. [facility] throughout the thoracic s pine. Vertebral body heights are preserved and alignment is maintained. IMPRESSION: DISH throughout the thoracic spine. No vertebral compression collapse or malalignment is seen radiogr aphically.
[2021-12-21] MEDS ORDERED: ONDANSETRON ODT 4 MG TAB PO STA (09:48)
[2021-12-21 10:29] VITALS: BP 152/76; PULSE 61; TEMP 98
== END 2021-12-21 10:30 | disposition home or self-care (01) ==
LOC: EC 07:34
DX: S00.03XA Contusion of scalp, initial encounter (principal); M54.9 Dorsalgia, unspecified; J45.909 Unspecified asthma, uncomplicated; I25.10 Atherosclerotic heart disease of native coronary artery without angina pectoris; E78.5 Hyperlipidemia, unspecified; I10 Essential (primary) hypertension; M19.90 Unspecified osteoarthritis, unspecified site; E07.9 Disorder of thyroid, unspecified; Z88.2 Allergy status to sulfonamides; Z88.5 Allergy status to narcotic agent; Z79.82 Long term (current) use of aspirin; Z90.49 Acquired absence of other specified parts of digestive tract; W00.0XXA Fall on same level due to ice and snow, initial encounter
CPT/HCPCS: 70450; 72070; 72125; 99284

== ENCOUNTER → 2022-06-29 | Outpatient (CLI) | payer MEDICARE ==
[2022-06-29 10:41] LABS: ALT 12 U/L (8-44); AST 23 U/L (13-35); Chol/HDL Ratio 3.04 Ratio; LDL Cholesterol,Calculated 81.8 mg/dL (0.0-131.0)
== END | disposition home or self-care (01) ==
LOC: LABWHC1 07:37
PROVIDERS: ATTEND Internal Medicine Interventional Cardiology
DX: E78.2 Mixed hyperlipidemia (principal)
CPT/HCPCS: 36415; 80061; 84450; 84460

== ENCOUNTER → 2023-06-28 | Outpatient (CLI) | payer MEDICARE ==
[2023-06-28 11:18] LABS: ALT 12 U/L (8-44); AST 24 U/L (13-35); LDL Cholesterol,Calculated 55.6 mg/dL (0.0-131.0); VLDL Calculation 18.94 mg/dL (5.00-40.00)
== END | disposition home or self-care (01) ==
LOC: LABWHC1 07:11
PROVIDERS: ATTEND Internal Medicine Cardiovascular Disease
DX: E78.2 Mixed hyperlipidemia (principal)
CPT/HCPCS: 36415; 80061; 84450; 84460

== ENCOUNTER → 2023-07-21 | Outpatient (CLI) | payer MEDICARE | END | disposition home or self-care (01) | LOC: LABWHC1 16:29 | PROVIDERS: ATTEND Orthopaedic Surgery | DX: E11.9 Type 2 diabetes mellitus without complications (principal) | CPT/HCPCS: 36415; 83036 ==

== ENCOUNTER 2023-07-27 11:11 | Day surgery (SDC) | payer MEDICARE ==
[~2023-07-27 11:11] MED LIST changes: +ACETAMINOPHEN TAB 500 MG TAB PO PRN; +DEXAMETHASONE SOD PHOSPHATE 10 MG/ML 1 ML VIAL IV PRN; +DOCUSATE 100 MG CAP PO PRN; +FAMOTIDINE 20 MG/2 ML VIAL IVP PRN; +HYDROmorphone 0.5 MG/0.5 ML SYRINGE IVP PRN; +KETOROLAC 15 MG/ML 1 ML VIAL IVP PRN; -LACTATED RINGERS 1,000 ML IV SCH; -LIDOCAINE 1% 20 ML VIAL (10MG/ML) FOR IV START INTRADERMA PRN; +ONDANSETRON 4 MG/2 ML VIAL IVP PRN; +TRANEXAMIC 1,000 MG/100ML-NACL 1,000 MG in SALINE 1 100ML.BAG IV PRN; +TRANEXAMIC 1,000 MG/100ML-NACL 1,000 MG in SALINE 1 100ML.BAG IVPB PRN; +VANCOMYCIN 1,500 MG in SODIUM CHLORIDE 0.9% 500 ML 500 ML IVPB PRN; +oxyCODONE ER 10 MG TAB.ER.12H PO PRN
[2023-07-27] MEDS: LACTATED RINGERS 1,000 ML IV SCH ×4 (11:31→18:48)
[2023-07-27] MEDS ORDERED: DEXAMETHASONE SOD PHOSPHATE 4 MG/ML 1 ML VIAL IVP ONE (12:00)
[2023-07-27] MEDS ORDERED: MIDAZOLAM 2 MG/2 ML VIAL IVP ONE (12:29)
[2023-07-27] MEDS ORDERED: ePHEDrine 50 MG/ML 1 ML VIAL ONE (13:05)
[2023-07-27] MEDS ORDERED: LIDOCAINE 1% INJ 10MG/ML (20 ML MDV) ONE (13:05)
[2023-07-27] MEDS ORDERED: fentaNYL (PF) 50 MCG/ML 2 ML AMP ONE (13:05)
[2023-07-27] MEDS ORDERED: SODIUM CHLORIDE 0.9% (PF) 10 ML VIAL ONE (13:05)
[2023-07-27] MEDS ORDERED: ROCURONIUM 10 MG/ML (5 ML VIAL) IV ONE (13:05)
[2023-07-27] MEDS ORDERED: SUCCINYLCHOLINE CHLORIDE 200 MG/10 ML VIAL IV ONE (13:05)
[2023-07-27] MEDS ORDERED: BUPIVACAIN-EPI 0.5%-1:200,000 30 ML VIAL ONE (13:05)
[2023-07-27] MEDS ORDERED: TRANEXAMIC 1,000 MG/100ML-NACL PREMIX BAG ONE (13:05)
[2023-07-27] MEDS ORDERED: PHENYLEPHRINE-0.9% NACL SYG 1,000 MCG/10 ML SYRINGE ONE (13:05)
[2023-07-27] MEDS ORDERED: PROPOFOL 10 MG/ML 20 ML VIAL IV ONE (13:05)
--- NOTE | 2023-07-27 13:27 | P.ANPRN ---
Procedure Note - Anesthesia - Nerve Block Performed Right Adductor Canal Single Time Out Performed: Yes (1228) Date of Procedure: 07/27/23 Procedure Start Time: : Procedure Stop Time: : Location of Patient: PreOp Indication: Acute Post-Operative Pain, Requested by Surgeon Specifically requested for management of pain by DrFunmi: Thiago Cleaning Sedation Type: Sedate with meaningful contact maintained Preparation: Sterile Prep Position: Supine Catheter: None Needle Types: Pajunk Needle Gauge: 21 Ultrasound used to visualize needle placement: Yes Ultrasound used to observe medication spread: Yes Injectate: 0.5% Ropivacaine (see comment for volume) (15cc +5cc nacl pf) Blood Aspirated: No Pain Paresthesia on Injection Noted: No Resistance on Injection: Normal Image Stored and Saved: Yes Events: Uneventful and Well Tolerated
--- NOTE | 2023-07-27 13:28 | P.ANPRN ---
Procedure Note - Anesthesia - Nerve Block Performed Right iPack Single Time Out Performed: Yes (1228) Date of Procedure: 07/27/23 Procedure Start Time: 12:32 Procedure Stop Time: 12:34 Location of Patient: PreOp Indication: Acute Post-Operative Pain, Requested by Surgeon Specifically requested for management of pain by DrFunmi: Thiago Cleaning Sedation Type: Sedate with meaningful contact maintained Preparation: Sterile Prep Position: Supine Catheter: None Needle Types: Pajunk Needle Gauge: 21 Ultrasound used to visualize needle placement: Yes Ultrasound used to observe medication spread: Yes Injectate: 0.5% Ropivacaine (see comment for volume) (15cc +5cc nacl pf) Blood Aspirated: No Pain Paresthesia on Injection Noted: No Resistance on Injection: Normal Image Stored and Saved: Yes Events: Uneventful and Well Tolerated
[2023-07-27] MEDS: ROPIVACAINE/EPI/CLONIDINE/KET 50 ML SYRINGE MISCELLANE PRN ×2 (13:41→14:34)
--- NOTE | 2023-07-27 15:18 | P.OP ---
Date of Procedure: 07/27/23 Preoperative Diagnosis: 1. Severe right knee osteoarthritis 2. Type 2 diabetes with preoperative hemoglobin A1c level 6.1 3. Coronary artery disease Postoperative Diagnosis: Same Procedure(s) Performed: 1. Right total knee arthroplasty 2. Computer assisted musculoskeletal navigation using CT/MRI images Implants: 1. [employer] CR Femur Size #3 2. [employer] [employer] May Tibial Base Size #3 3. Raj [employer]lon CS poly Size #3, 9-mm 4. [place] [employer] all poly patella, Size #29 Anesthesia: VIOLAA, regional Surgeon: Thiago Cleaning Mobile Home Mechanic #1: Vidya Rodríguez Estimated Blood Loss (ml): 100 IV fluids (ml): 900 Pathology: none sent Condition: stable Disposition: PACU Indications for Procedure: I met with the patient preoperatively in the office setting and discussed treatment of their symptomatic knee arthritis. They failed a long course of nonsurgical treatment and elected to proceed with an elective total knee replacement. I discussed the potential risks and complications at length and gave them ample time to ask questions. Risks discussed included: risks from anesthesia, superficial site surgical infection, acute and/or chronic periprosthetic joint infection, delayed wound healing, drainage, wound necrosis, instability, stiffness, stiffness requiring manipulation and/or revision surgery, damage to local blood vessels or nerves, aseptic loosening of the implants, extensor mechanism issues including disruption, patellar maltracking, avascular necrosis etc., continued or worsened knee pain, generalized dissatisfaction with surgical outcome, need for revision surgery, an inability to regain preinjury level of function, DVT, PE, other medical complications, and possibly loss of life or limb. The patient voiced their understanding that while these are the most common complications other less common complications are possible. They provided both their verbal and written consent to go forward with surgery. Operative Findings: Severe tricompartmental knee osteoarthritis Description of Procedure: The patient was identified in preoperative holding and the correct operative extremity was verified and marked with a marker. I reviewed the consent form with the patient at length. All of their questions were answered. The patient was given a block by anesthesia. They were then brought back to the operating room. They were transferred onto the operating room table where a general anesthetic, preoperative antibiotics, and tranexamic acid were administered by anesthesia. A tourniquet was applied to the proximal aspect of the operative extremity. The contralateral extremity was padded under the heel and secured to the operating room table with a nonsterile blue towel and tape. The ipsilateral arm was carefully draped across the patient's chest and secured with a pillow and foam. A post was applied over the lateral aspect of the ipsilateral thigh and a bolster was placed under the ipsilateral foot. I verified that the operative extremity was stable and the knee was flexed to 90. The operative extremity was then placed in a leg suh, nonsterile drapes were applied, and the extremity was prepped and draped sterilely in the standard sterile fashion. Prior to starting surgery timeout was performed identifying the correct patient, operative extremity, and procedure. The leg was then elevated, exsanguinated with an Esmarch bandage, and the tourniquet was inflated. An anterior midline incision was made sharply with a scalpel. Once I had dissected deep to the superficial fascial layer medial and lateral flaps were elevated. A medial parapatellar arthrotomy was created. Upon opening the knee joint there were diffuse arthritic changes in all 3 compartments. The anterior horn of the medial meniscus were sharply released and a medial release was performed around the posterior medial corner of the knee to facilitate retractor placement. The fat pad was excised with electrocautery. The patella was found to be severely arthritic and a provisional cut was made with a sagittal saw to facilitate mobilization of the extensor mechanism during the procedure. Remnants of the ACL and PCL were then excised from the notch. 4 mm pins were then placed within the incision in the medial distal femur and proximal tibia. Arrays were applied to the pins and I verified they were completely tightened. The knee was then registered with the [employer] robot and manipulations in implant position were made to balance the knee and opitmize implant position. Using the [employer] robotic saw all cuts were made in accordance with our plan. After all bony fragments had been removed the cuts were verified with the planar probe. The tibia was then subluxed forward and sized. The knee was brought into flexion and a lamina drinking water technician was placed to allow removal of the meniscal remnants both medially and laterally as well as posterior osteophytes. Local anesthetic was then infiltrated around the joint capsule. Trial implants were then placed within the knee. Range of motion and collateral ligament tension was then evaluated. Adjustments in implant size and position were then made accordingly. Once the knee was felt to be appropriately balanced the Flakito pins were removed. The patella was then recut, sized, and punched. A trial patellar button was then placed. With the trial components in place, the patella tracked midline. The femur was then drilled and the trial component removed. The trial tibial component was then appropriately rotated, pinned, and prepared for the keel. All trial components were then removed from the knee. The knee was thoroughly irrigated with pulsatile lavage. Cement was prepared via vacuum mixing in a bowl on the back table. I then hand pressurized cement into the femur and tibia and placed the implants beginning with the tibial base tray and poly liner, femoral component, and finally the patellar button. All extruded cement was r emoved including from the pin sites. Once the cement had hardened the knee was evaluated one final time with the final polyethylene liner in place. The knee had full extension and flexion and felt stable to varus and valgus stress throughout the arc of motion. The tourniquet was released and with the tourniquet down the patella tracked midline. All bleeders were controlled with electrocautery. The knee was then soaked for 3 minutes with a dilute Betadine soak. The knee was thoroughly irrigated using 3 L of sterile saline and pulsatile lavage. A deep drain was placed. The extensor mechanism was then reapproximated using pop off Vicryl sutures followed by a running barbed suture. The knee was then closed in layers with a 0 strata fix for the deep fascial layer, 2-0 strata fix for the superficial subcutaneous layer and Monocryl and Steri-Strips for the skin. A sterile dressing and drain sponge were applied. I verified that all instrument, sponge, and sharp counts were correct. The patient was then transferred off the operating room table, extubated, and brought to recovery having tolerated the procedure well. Vidya Rodríguez PA-C was required as a skilled human resource assistant due to the complexity of the procedure for patient positioning, draping, retraction, placement of hardware, and closure of wound. PLAN: The patient can weight-bear as tolerated on the operative extremity. DVT prophylaxis with aspirin 81 mg twice a day based on preoperative risk stratification. Follow-up in the office in 2 weeks for wound check and x-rays of the knee including an AP and lateral.
[2023-07-27] MEDS ORDERED: NALOXONE 0.4 MG/ML 1 ML VIAL IV PRN (15:25)
[2023-07-27] MEDS ORDERED: HYDROmorphone 1 MG/ML 1 ML SYRINGE IVP PRN (15:25)
[2023-07-27] MEDS ORDERED: hydrOXYzine pamoate 25 MG CAP PO PRN (15:25)
[2023-07-27] MEDS ORDERED: HYDROcodone/APAP 5-325MG 1 EACH TAB PO PRN ×2 (15:25)
[2023-07-27] MEDS ORDERED: HYDROmorphone 0.5 MG/0.5 ML SYRINGE IVP PRN ×2 (15:25)
--- NOTE | 2023-07-27 15:49 | XR ---
EXAMINATION TYPE: XR knee limited RT DATE OF EXAM: 07/27/2023 COMPARISON: NONE TECHNIQUE: Two views submitted HISTORY: Post op FINDINGS: There is a prosthetic knee in near anatomic alignment. There is soft tissue edema and emphysema. Surgical drain noted. IMPRESSION: 1. Postoperative change. Appears in near-anatomic alignment
[2023-07-27] MEDS ORDERED: LACTATED RINGERS 1,000 ML IV ONE ×2 (16:00)
[2023-07-27] MEDS ORDERED: MELOXICAM 7.5 MG TAB PO PRN (18:16)
[2023-07-27] MEDS ORDERED: ALBUTEROL HFA INHALER INHALATION PRN (18:16)
[2023-07-27] MEDS ORDERED: LORATADINE 10 MG TAB PO PRN (18:16)
[2023-07-27] MEDS ORDERED: ONDANSETRON 4 MG/2 ML VIAL IVP PRN (18:17)
[2023-07-27] MEDS ORDERED: ERGOCALCIFEROL 1,250 MCG (50,000 IU) CAPSULE PO SCH (18:30)
[2023-07-27] MEDS: ASPIRIN 81 MG PO SCH (20:07)
[2023-07-27] MEDS ORDERED: SENNOSIDES-DOCUSATE SODIUM 1 EACH TAB PO SCH (21:00)
[2023-07-27] MEDS ORDERED: atenoloL 50 MG TAB PO SCH (21:00)
[2023-07-27] MEDS ORDERED: Mirabegron [Myrbetriq] 25 MG Tab.Er.24h PO SCH (21:00)
[2023-07-27] MEDS ORDERED: LEVOTHYROXINE 112 MCG TAB PO SCH (21:00)
[2023-07-27] MEDS ORDERED: ATORVASTATIN 80 MG TAB PO SCH (21:00)
[2023-07-27] MEDS: FLUTICASONE 110 MCG INHALER INHALATION SCH (22:15)
[2023-07-28 06:10] LABS: Basophils % (A) 0 %; Eosinophils # (A) 0.1 k/uL (0-0.7); Eosinophils % (A) 1 %; HCT 38.2 % (34.0-46.0); HGB 12.4 gm/dL (11.4-16.0); Lymphocytes # (A) 0.9 k/uL (1.0-4.8); Lymphocytes % (A) 12 %; MCH 28.7 pg (25.0-35.0); MCHC 32.4 g/dL (31.0-37.0); MCV 88.6 fL (80.0-100.0); Mean Platelet Volume 9.9; Monocytes # (A) 0.5 k/uL (0-1.0); Monocytes % (A) 6 %; Neutrophils % (A) 80 %; Platelet Count 155 k/uL (150-450); RBC 4.31 m/uL (3.80-5.40); RDW 13.7 % (11.5-15.5); WBC 7.5 k/uL (3.8-10.6)
[2023-07-28] MEDS: LACTATED RINGERS 1,000 ML IV SCH ×3 (06:21→10:23)
[2023-07-28] MEDS ORDERED: PANTOPRAZOLE 40 MG TABLET PO SCH (07:30)
[2023-07-28 07:39] VITALS: BP 105/65; PULSE 64; TEMP 97.9
--- NOTE | 2023-07-28 08:48 | P.DS ---
Providers Expected date of discharge: 07/28/23 Attending physician: Thiago Cleaning Consults: 07/27/23 15:25 Consult Physician Routine Consulting Provider: Bethany Brewer Consult Reason/Comments: medical management Do you want consulting provider notified?: Yes Primary care physician: Ramsey Matute [facility] Course: This is a 77-year-old female who has been followed in our office by Dr. Cleaning for continued complaints of right knee pain due to right knee osteoarthritis. Treatment options were discussed, and patient elected to undergo a right total knee arthroplasty. Patient was seen pre-operatively by Dr. Matute, Dr. Barahona and cleared for surgery. Patient underwent right total knee arthroplasty on 07/27/[address] Cleaning. The procedure was performed without complication or sequelae. The patient is doing fairly well postoperatively. Vital signs and labs are stable on postoperative day #1. Patient was examined bedside this morning with Dr. Cleaning. Patient states she is overall doing very well and the pain in her knee is well-controlled. She has been ambulating with a walker with minimal assistance. Patient will work with physical therapy this morning to return home. Patient is comfortable being discharged home today. Patient has no new complaints this morning. On examination, the patient is sitting up in bed in no apparent distress. She is alert and orientated 3. On inspection of the right knee, there is a clean, dry, intact surgical dressing in place with no bleeding or drainage through the dressing. Patient has good strength and ROM of the right ankle and toes. Motor and sensory function is intact of the right lower extremity. The dorsalis pedis pulse is easily palpable, the right lower extremity is warm and well perfused with brisk capillary refill. Calf is soft and non-tender to palpation. Hemovac drain removed bedside this morning during examination. Patient is discharged home with home health care today in good condition, pending medical clearance. Patient will follow-up in the office at [facility] in 2 weeks. Please see med rec for accurate list of discharge medication. Plan - Discharge Summary Discharge Rx Participant: Yes New Discharge Prescriptions: New Diclofenac Sodium [Voltaren] 75 mg PO BID 30 Days #60 tab Aspirin 81 mg PO BID 30 Days #60 tab Docusate [Colace] 100 mg PO BID #60 capsule HYDROcodone/APAP 5-325MG [[place] 5-325] 1 - 2 tab PO Q6HR PRN 7 Days #32 tab PRN Reason: Pain Omeprazole 40 mg PO DAILY 30 Days #30 cap No Action atenoloL [Tenormin] 50 mg PO BID Albuterol Sulfate [Proair Hfa] 2 puff INHALATION RT-QID PRN PRN Reason: Shortness Of Breath Montelukast [Singulair] 10 mg PO DAILY Levothyroxine Sodium [Synthroid] 112 mcg PO HS Levocetirizine Dihydrochloride [Xyzal] 5 mg PO DAILY PRN PRN Reason: Allergy Symptoms Isosorbide Mononitrate ER [Imdur] 30 mg PO DAILY #30 tab.er.24h Atorvastatin [Lipitor] 80 mg PO HS Krill/Om-3/Dha/Epa/Phospho/Ast [Normal-3 Krill Oil 300 mg Sfgl] 1 cap PO DAILY Aspirin EC [Ecotrin Low Dose] 81 mg PO DAILY Ergocalciferol [Vitamin D2 (1250 Mcg = 90576 Iu)] 1,250 mcg PO WE Celecoxib [CeleBREX] 200 mg PO HS PRN PRN Reason: Pain Vit C/E/Zn/Coppr/Lutein/Zeaxan [Preservision Areds 2 Softgel] 1 each PO DAILY Nystatin 100,000 Unit/gm Powd [Mycostatin Powder] 1 applic TOPICAL DIRECTED PRN PRN Reason: Skin Irritation Triamcinolone Acetonide [Triamcinolone Acetonide 0.1% Lotion] 1 applic TOPICAL DIRECTED PRN PRN Reason: lichen planus Naproxen Sodium [Aleve] 220 mg PO BID PRN PRN Reason: Pain Fluticasone Propionate [Flovent Diskus] 1 puff INHALATION RT-BID Mirabegron [Myrbetriq] 25 mg PO HS Discharge Medication List Albuterol Sulfate [Proair Hfa] 2 puff INHALATION RT-QID PRN 05/13/15 [History] Levocetirizine Dihydrochloride [Xyzal] 5 mg PO DAILY PRN 05/13/15 [History] Levothyroxine Sodium [Synthroid] 112 mcg PO HS 05/13/15 [History] Montelukast [Singulair] 10 mg PO DAILY 05/13/15 [History] atenoloL [Tenormin] 50 mg PO BID 05/13/15 [History] Isosorbide Mononitrate ER [Imdur] 30 mg PO DAILY #30 tab.er.24h 05/15/15 [Rx] Atorvastatin [Lipitor] 80 mg PO HS 03/20/19 [History] Krill/Om-3/Dha/Epa/Phospho/Ast [Normal-3 Krill Oil 300 mg Sfgl] 1 cap PO DAILY 03/20/19 [History] Aspirin EC [Ecotrin Low Dose] 81 mg PO DAILY 11/27/19 [History] Ergocalciferol [Vitamin D2 (1250 Mcg = 41615 Iu)] 1,250 mcg PO WE 12/21/21 [History] Fluticasone Propionate [Flovent Diskus] 1 puff INHALATION RT-BID 12/21/21 [History] Naproxen Sodium [Aleve] 220 mg PO BID PRN 12/21/21 [History] Celecoxib [CeleBREX] 200 mg PO HS PRN 07/20/23 [History] Mirabegron [Myrbetriq] 25 mg PO HS 07/20/23 [History] Nystatin 100,000 Unit/gm Powd [Mycostatin Powder] 1 applic TOPICAL DIRECTED PRN 07/20/23 [History] Triamcinolone Acetonide [Triamcinolone Acetonide 0.1% Lotion] 1 applic TOPICAL DIRECTED PRN 07/20/23 [History] Vit C/E/Zn/Coppr/Lutein/Zeaxan [Preservision Areds 2 Softgel] 1 each PO DAILY 07/20/23 [History] Aspirin 81 mg PO BID 30 Days #60 tab 07/28/23 [Rx] Diclofenac Sodium [Voltaren] 75 mg PO BID 30 Days #60 tab 07/28/23 [Rx] Docusate [Colace] 100 mg PO BID #60 capsule 07/28/23 [Rx] HYDROcodone/APAP 5-325MG [[place] 5-325] 1 - 2 tab PO Q6HR PRN 7 Days #32 tab 07/28/23 [Rx] Omeprazole 40 mg PO DAILY 30 Days #30 cap 07/28/23 [Rx] Follow up Appointment(s)/Referral(s): Thiago Cleaning MD [Medical Doctor] - 2 Weeks Activity/Diet/Wound Care/Special Instructions: Weight bear to tolerance on operative extremity with a walker. Keep operative dressing in place until follow-up appointment in the office. Call the office if dressing becomes saturated or falls off. May shower over dressing. Take pain medication as prescribed. Do not take any additional NSAIDs (Mobic, Celebrex, Naproxen, Aleve) and Diclofenac at the same time. Take aspirin 81mg twice a day x 4 weeks for blood clot prevention. Follow-up in the office in two weeks at [facility]. Call the office with any questions or concerns, Discharge Disposition: HOME WITH HOME HEALTH SERVICES
[2023-07-28] MEDS ORDERED: MONTELUKAST 10 MG TAB PO SCH (09:00)
[2023-07-28] MEDS ORDERED: VIT A,C & E-LUTEIN-MINERALS 1 EACH TAB PO SCH (09:00)
[2023-07-28] MEDS ORDERED: ISOSORBIDE MONONITRATE ER 30 MG TAB.ER.24H PO SCH (09:00)
[2023-07-28] MEDS: FLUTICASONE 110 MCG INHALER INHALATION SCH (09:11)
[2023-07-28 09:12] LABS: Blood Urea Nitrogen 22.1 mg/dL (9.0-27.0); Carbon Dioxide 26.8 mmol/L (21.6-31.8); Chloride 102 mmol/L (96-109); Glucose 111 mg/dL (70-110); Potassium 4.4 mmol/L (3.5-5.5); Sodium 139 mmol/L (135-145)
[2023-07-28] MEDS: ASPIRIN 81 MG PO SCH (09:49)
[2023-07-28 13:21] VITALS: RESP 12
--- NOTE | 2023-07-28 14:46 | P.CONS ---
History of Present Illness - Reason for Consult Consult date: 07/28/23 Medical management - History of Present Illness History of present illness; patient is a 77-year-old lady with past medical history significant for osteoarthritis, hypertension, hypothyroidism presents to the hospital for elective right knee total arthroplasty. Patient has been following up outpatient with orthopedics for right knee pain. Patient had tried conservative treatment options but that failed. Plan was made for patient to undergo right knee total arthroplasty. Patient underwent the procedure on 07/27. Post operatively medicine team was consulted for medical management REVIEW OF SYSTEMS: CONSTITUTIONAL: No fever, no malaise, no fatigue. HEENT: No recent visual problems or hearing problems. Denied any sore throat. CARDIOVASCULAR: No chest pain, orthopnea, PND, no palpitations, no syncope. PULMONARY: No shortness of breath, no cough, no hemoptysis. GASTROINTESTINAL: No diarrhea, no nausea, no vomiting, no abdominal pain. NEUROLOGICAL: No headaches, no weakness, no numbness. HEMATOLOGICAL: Denies any bleeding or petechiae. GENITOURINARY: Denies any burning micturition, frequency, or urgency. MUSCULOSKELETAL/RHEUMATOLOGICAL: Comparing of right knee pain ENDOCRINE: Denies any polyuria or polydipsia. The rest of the 14-point review of systems is negative. PHYSICAL EXAMINATION: GENERAL: The patient is alert and oriented x3, not in any acute distress. Well developed, well nourished. HEENT: Pupils are round and equally reacting to light. EOMI. No scleral icterus. No conjunctival pallor. Normocephalic, atraumatic. No pharyngeal erythema. No thyromegaly. CARDIOVASCULAR: S1 and S2 present. No murmurs, rubs, or gallops. PULMONARY: Chest is clear to auscultation, no wheezing or crackles. ABDOMEN: Soft, nontender, nondistended, normoactive bowel sounds. No palpable organomegaly. MUSCULOSKELETAL: Right knee surgical incision seen EXTREMITIES: No cyanosis, clubbing, or pedal edema. NEUROLOGICAL: Gross neurological examination did not reveal any focal deficits. SKIN: No rashes. Assessment and plan Status post right total knee arthroplasty Hypertension Hyperlipidemia Hypothyroidism COPD Monitor vital signs Monitor CBC Monitor CMP Continue pain meds per orthopedics Continue DVT prophylaxis per orthopedics Resume home meds Labs and medication were reviewed.. Continue same treatment. Continue with symptomatic treatment. Resume home medication. Monitor labs and vitals. DVT and GI prophylaxis. Further recommendations as per clinical course of the patient Dictation was produced using [employer] dictation software. please excuse any gram matical, word or spelling errors. Past Medical History Past Medical History: Asthma, Coronary Artery Disease (CAD), Eye Disorder, Hyperlipidemia, Hypertension, Osteoarthritis (OA), Skin Disorder, Thyroid Disorder Additional Past Medical History / Comment(s): MACULAR DEGENERATION. ULCER (STOMACH). SHINGLES 2010. HASHIMOTOS. LICHEN SCLEROSUS ON VULVA, LICHEN PLANUS. HAD POS HOME TEST FOR BLOOD IN STOOL. OA IN NECK. History of Any Multi-Drug Resistant Organisms: None Reported Past Surgical History: Breast Surgery, Cholecystectomy, Heart Catheterization, Tonsillectomy Additional Past Surgical History / Comment(s): BREAST BX NEG. BREAST REDUCTION SX, colonoscopy about 5 years ago, UTERINE fibroid tumor removed. 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 Smoking Status: Never smoker Past Alcohol Use History: Occasional Additional Past Alcohol Use History / Comment(s): STARTED SMOKING AT AGE 15, SMOKED UP TO 1 1/2 PPD ,QUIT AT AGE 44 Past Drug Use History: None Reported - Past Family History Father Family Medical History: Renal Disease Additional Family Medical History / Comment(s): NEPHRECTOMY, HEART PROBLEMS. Mother Family Medical History: Coronary Artery Disease (CAD), Dementia, Hypertension, Osteoarthritis (OA) Brother(s) Family Medical History: No Reported History Sister(s) Family Medical History: No Reported History Daughter(s) Family Medical History: No Reported History Medications and Allergies Home Medications Medication Instructions Recorded Confirmed Type Albuterol Sulfate [Proair Hfa] 2 puff INHALATION RT-QID PRN 05/13/15 07/27/23 History Levocetirizine Dihydrochloride 5 mg PO DAILY PRN 05/13/15 07/27/23 History [Xyzal] Levothyroxine Sodium [Synthroid] 112 mcg PO HS 05/13/15 07/27/23 History Montelukast [Singulair] 10 mg PO DAILY 05/13/15 07/27/23 History atenoloL [Tenormin] 50 mg PO BID 05/13/15 07/27/23 History Isosorbide Mononitrate ER [Imdur] 30 mg PO DAILY #30 tab.er.24h 05/15/15 07/27/23 Rx Atorvastatin [Lipitor] 80 mg PO HS 03/20/19 07/27/23 History Krill/Om-3/Dha/Epa/Phospho/Ast 1 cap PO DAILY 03/20/19 07/27/23 History [[place]-3 Krill Oil 300 mg Sfgl] Aspirin EC [Ecotrin Low Dose] 81 mg PO DAILY 11/27/19 07/27/23 History Ergocalciferol [Vitamin D2 (1250 1,250 mcg PO WE 12/21/21 07/27/23 History Mcg = 43609 Iu)] Fluticasone Propionate [Flovent 1 puff INHALATION RT-BID 12/21/21 07/27/23 History Diskus] Naproxen Sodium [Aleve] 220 mg PO BID PRN 12/21/21 07/27/23 History Celecoxib [CeleBREX] 200 mg PO HS PRN 07/20/23 07/27/23 History Mirabegron [Myrbetriq] 25 mg PO HS 07/20/23 07/27/23 History Nystatin 100,000 Unit/gm Powd 1 applic TOPICAL DIRECTED PRN 07/20/23 07/27/23 History [Mycostatin Powder] Triamcinolone Acetonide 1 applic TOPICAL DIRECTED PRN 07/20/23 07/27/23 History [Triamcinolone Acetonide 0.1% Lotion] Vit C/E/Zn/Coppr/Lutein/Zeaxan 1 each PO DAILY 07/20/23 07/27/23 History [Preservision Areds 2 Softgel] Aspirin 81 mg PO BID 30 Days #60 tab 07/28/23 Rx Diclofenac Sodium [Voltaren] 75 mg PO BID 30 Days #60 tab 07/28/23 Rx Docusate [Colace] 100 mg PO BID #60 capsule 07/28/23 Rx HYDROcodone/APAP 5-325MG [[place] 1 - 2 tab PO Q6HR PRN 7 Days #32 07/28/23 Rx 5-325] tab Omeprazole 40 mg PO DAILY 30 Days #30 cap 07/28/23 Rx Allergies Allergy/AdvReac Type Severity Reaction Status Date / Time codeine Allergy Hallucinati Verified 07/27/23 11:51 ons morphine Allergy Swelling Verified 07/27/23 11:51 @Injection Site Sulfa (Sulfonamide Allergy Itching Verified 07/27/23 11:51 Antibiotics) Physical Exam Vitals: Vital Signs Temp Pulse Pulse Resp BP Pulse Ox 07/28/23 07:01 97.9 F 64 18 105/65 90 L 07/28/23 06:51 97.8 F 92 12 117/70 07/27/23 19:05 55 L 106/62 92 L 07/27/23 18:50 59 L 92/56 93 L 07/27/23 18:35 59 L 94/57 93 L 07/27/23 18:20 57 L 119/63 93 L 07/27/23 18:05 60 103/67 92 L 07/27/23 17:50 61 103/65 92 L 07/27/23 17:35 94 130/88 92 L 07/27/23 17:22 97.4 F L 66 16 103/56 91 L 07/27/23 17:20 69 96/59 92 L 07/27/23 17:13 88 19 96/59 95 07/27/23 17:05 70 103/56 90 L 07/27/23 16:19 89 16 125/72 96 07/27/23 16:04 75 16 131/73 90 L 07/27/23 15:49 95 16 127/60 93 L 07/27/23 15:34 92 16 139/66 92 L 07/27/23 15:19 91 16 124/99 96 07/27/23 12:47 81 16 107/57 95 07/27/23 12:43 82 16 110/61 94 L 07/27/23 12:15 97.5 F L 84 16 130/63 94 L Intake and Output 07/27/23 07/28/23 07/28/23 22:59 06:59 14:59 Intake Total 260 Output Total 280 120 Balance -20 -120 Intake: IV 260 Invasive Line 1 10 Output: Drainage 280 120 Right Knee 280 120 Other: Voiding Method Bedside Commode # Voids 2 Weight 93.2 kg Results CBC & Chem 7: 07/28/23 05:50 07/28/23 05:58 Labs: Abnormal Lab Results - Last 24 Hours (Table) 07/28/23 07/28/23 Range/Units 05:50 05:58 Lymphocytes # 0.9 L (1.0-4.8) k/uL Est GFR (CKD-EPI) 58 L (>=60) BUN/Creatinine Ratio 22.10 H (12.00-20.00) Ratio Glucose 111 H (70-110) mg/dL Calcium 8.0 L (8.7-10.3) mg/dL
== END 2023-07-28 13:35 | disposition home health service (06) ==
LOC: OR 11:11 → 4SSUR 15:07 → OR 07-28 13:35
PROVIDERS: ATTEND Orthopaedic Surgery
DX: M17.11 Unilateral primary osteoarthritis, right knee (principal); E11.9 Type 2 diabetes mellitus without complications; I25.10 Atherosclerotic heart disease of native coronary artery without angina pectoris; G89.18 Other acute postprocedural pain; Z79.82 Long term (current) use of aspirin; Z79.899 Other long term (current) drug therapy; I10 Essential (primary) hypertension; E78.5 Hyperlipidemia, unspecified; J44.9 Chronic obstructive pulmonary disease, unspecified; Z90.49 Acquired absence of other specified parts of digestive tract; Z90.89 Acquired absence of other organs; Z98.890 Other specified postprocedural states; Z82.49 Family history of ischemic heart disease and other diseases of the circulatory system; Z82.61 Family history of arthritis; Z79.51 Long term (current) use of inhaled steroids; Z79.890 Hormone replacement therapy
CPT/HCPCS: 0055T; 27447; 64447; 64999; 80048; 85025; 94640

== ENCOUNTER → 2025-02-05 | Outpatient (CLI) | payer MEDICARE ==
[2025-02-05 10:31] LABS: ALT 30 U/L (8-44); AST 48 U/L (13-35); Chol/HDL Ratio 2.69 Ratio; LDL Cholesterol,Calculated 65.3 mg/dL (0.0-131.0); VLDL Calculation 19.52 mg/dL (5.00-40.00)
== END | disposition home or self-care (01) ==
LOC: LABWHC1 07:06
PROVIDERS: ATTEND Internal Medicine Cardiovascular Disease
DX: E78.2 Mixed hyperlipidemia (principal)
CPT/HCPCS: 36415; 80061; 84450; 84460